=== PATIENT | male | born 1995 ===

== ENCOUNTER 2025-03-28 06:05 | Day surgery (SDC) | payer OTHER, SELFPAY ==
[2025-03-28] MEDS: TYLENOL 1000 MG PO (06:50)
[2025-03-28 06:59] VITALS: BP 128/88; BMI 33.3
[2025-03-28 08:51] VITALS: BP 128/88
[2025-03-28 08:53] VITALS: BP 128/73
[2025-03-28 09:00] VITALS: BP 115/79
[2025-03-28 09:15] VITALS: BP 139/92
[2025-03-28 09:45] VITALS: BP 125/64
== END 2025-03-28 10:10 | disposition home or self-care (01) ==
LOC: SDS 06:05
PROVIDERS: ATTENDING PHYSICIAN Surgery
DX: K40.90 Unilateral inguinal hernia, without obstruction or gangrene, not specified as recurrent (principal)
CPT/HCPCS: 49650; C1781